=== PATIENT | female | born 1965 | race Caucasian/White ===

== ENCOUNTER → 2016-06-25 | Outpatient (CLI) | payer BC ==
[~2016-06-25] MED LIST: ACET-1175 PO; DIGE1CAP7 PO; DOCU-94 PO; MELO15TA10 PO; OMEP20TA14 PO; PROBIOTICS PO
--- NOTE | 2016-06-26 14:08 | MAMMOGRAPHY REPORT ---
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 She also has a prior benign right breast stereotactic biopsy. COMPARISON: Comparison is made to exams dated: 10/20/2014 stereotactic biopsy, 09/27/2014 mammogram, 03/28/2014 ultrasound, 09/16/2013 localization, 08/19/2012 mammogram, and 05/08/2011 mammogram - [facility]. TECHNIQUE: Using a 1.5 Nan magnet and dedicated breast coil, multisequence axial images were obtai pat through the breasts. After uneventful IV administration of 5.5 mL of Gadavist, dynamic multipha se contrast-enhanced axial images, and sagittal postcontrast were obtained. Temporal subtraction ax ial images and 3-D MIP images are provided. Everything was then reviewed on a 3-D workstation, [facility] [employer] [facility]. FINDINGS: There is [id number] background parenchymal enhancement in the breasts. Numerous sca ttered subcentimeter cysts are also seen bilaterally. There is no new suspicious enhancing mass, jones spicious non-mass enhancement, architectural distortion or suspicious kinetics in the breasts. Some of the breast cysts demonstrate mild thin rim enhancement. No focal skin thickening or nipple retr action is appreciated. There is no axillary lymphadenopathy. Evidence of susceptibility artifact f rom previous benign biopsy in the upper outer quadrant of the right breast, and evidence of prior jones rgery in the superior left axillary tail region. IMPRESSION: ACR BI-RADS CATEGORY 2: BENIGN Stable post surgical changes in the left breast, and post biopsy changes in the right breast, with n o MRI evidence of malignancy bilaterally. Continuation of annual screening mammography schedule is recommended, and consider additional screening with breast MRI given the personal history of extreme ly dense breasts and biopsy-proven atypia. The patient will receive written notification of the results. Xiomara Queen M.D. 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
== END | disposition home or self-care (01) ==
LOC: C.MRI 13:54
PROVIDERS: ATTEND Obstetrics & Gynecology
DX: N60.82 Other benign mammary dysplasias of left breast (principal); R92.2 Inconclusive mammogram

== ENCOUNTER → 2016-09-04 | Outpatient (CLI) | payer BC ==
--- NOTE | 2016-09-06 06:17 | CODING QUERY NO DIAGNOSIS ---
TREATMENT RENDERED WITHOUT A DIAGNOSIS To promote full compliance with coding requirements relating to patient care, physician participation is requested in all cases of club manager uncertainty. Please assist us with providing a diagnosis/symptom for the test(s) below: A diagnosis/symptom was not documented on your Order. A valid diagnosis/symptom is required to bill all insurances. Please remember that we are unable to code a diagnosis of rule out, probable, possible, questionable, or suspected. DATE OF SERVICE: 09/04/16 Tests that require a diagnosis: * TISSUE PATH LEVEL IV DIAGNOSIS: Provider Signature: Date: [facility] you [facility] Once completed, please kindly fax back to [phone] For questions please call [phone]
== END | disposition home or self-care (01) ==
LOC: C.PATHSPEC 13:58
PROVIDERS: ATTEND Obstetrics & Gynecology
DX: N93.9 Abnormal uterine and vaginal bleeding, unspecified (principal)

== ENCOUNTER → 2017-07-04 | Outpatient (CLI) | payer OTHER ==
--- NOTE | 2017-07-07 07:41 | MAMMOGRAPHY REPORT ---
BILATERAL DIGITAL SCREENING MAMMOGRAM TOMOSYNTHESIS WITH CAD: 07/04/2017 CLINICAL HISTORY: Routine screening. Patient has no complaints. TECHNIQUE: Breast tomosynthesis in addition to standard 2D mammography was performed. Current study was also evaluated with a Computer Aided Detection (CAD) system. COMPARISON: Comparison is made to exams dated: 06/25/2016 breast MRI, 01/30/2016 mammogram, 05/10/2015 breast MRI, 04/24/2015 mammogram, 10/20/2014 mammogram, and 10/20/2014 stereotactic biopsy - [facility]. BREAST COMPOSITION: The tissue of both breasts is extremely dense, which lowers the sensitivity of m ammography. FINDINGS: No suspicious masses, calcifications, or areas of architectural distortion are noted in ei ther breast. There has been no significant interval change compared to prior exams. A scar marker de notes a scar on the left upper outer breast. Bilateral benign-appearing calcifications are not signi ficantly changed. A biopsy marker clip is again noted within the right upper outer quadrant. IMPRESSION: ACR BI-RADS CATEGORY 2: BENIGN There is no mammographic evidence of malignancy. A 1 year screening mammogram is recommended. The pa tient will receive written notification of the results. Approximately 10% of breast cancers are not detected with mammography. A negative mammographic report should not delay biopsy if a clinically suggestive mass is present. Tessie Macdonald M.D. /:07/04/2017 15:09:37 Hrbp: Janene Lam, [facility] letter sent: Normal 1/2 BI-RADS Code: ACR BI-RADS Category 2: Benign
== END | disposition home or self-care (01) ==
LOC: C.MAMM 11:33
PROVIDERS: ATTEND Obstetrics & Gynecology
DX: Z12.31 Encounter for screening mammogram for malignant neoplasm of breast (principal)

== ENCOUNTER → 2017-08-29 | Outpatient (CLI) | payer OTHER ==
--- NOTE | 2017-08-29 15:15 | DIAGNOSTIC IMAGING REPORT ---
R ANKLE MIN 3 VIEWS ROUTINE CLINICAL HISTORY: M25.571 Right ankle pain COMPARISON: None. DISCUSSION: No acute fractures or dislocations are visualized. There is a 30 x 9 x 10 mm lytic lesion within the distal tibial metaphysis laterally. This is well-circumscribed with a subtle sclerotic border. 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 IMPRESSION: 1. No acute fractures or dislocations 2. 30 x 9 x 10 mm lytic lesion with a distal tibial metaphysis. 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 Electronically signed by: Epifanio Landon M.D. 08/29/2017 3:13 PM Dictated Date/Time: 08/29/2017 3:11 PM
== END | disposition home or self-care (01) ==
LOC: C.RAD1850 15:04
PROVIDERS: ATTEND Family Medicine
DX: M25.571 Pain in right ankle and joints of right foot (principal)